=== PATIENT | male | born 1970 | race Caucasian/White ===

== ENCOUNTER 2017-08-22 20:21 | Emergency (ER) | payer SELFPAY ==
[~2017-08-22] VITALS: Ht 167.6 cm; Wt 70.3 kg
[2017-08-22 20:35] VITALS: Ht 167.6 cm; Wt 70.3 kg
[2017-08-22 21:47] VITALS: BP 118/78
== END 2017-08-22 21:47 | disposition home or self-care (01) ==
LOC: ED 20:21
DX: R19.7 Diarrhea, unspecified (principal); R11.10 Vomiting, unspecified; R10.9 Unspecified abdominal pain; K21.9 Gastro-esophageal reflux disease without esophagitis